=== PATIENT | female | born 1975 | race Caucasian/White ===

== ENCOUNTER → 2017-05-02 | Outpatient (CLI) | payer OTHER ==
[~2017-05-02] MED LIST: ACET325 PO; ALPR.5 PO; AMIT10; Atarax10 MG; CIME400 PO; CIPR500 PO; CLON.5 PO; CYAN500; CYCL10 PO; ESOM20 PO; FURO20 PO; GABA600; HYDACE10B PO; HYDACE5 PO; HYDACE5325 PO; HYDHCL25 PO; HYOS.125 SL; IBUP200 PO; IBUP800 PO; INDO25 PO; Imitrex25 MG; Keflex500 MG PO; LEVFLO500 PO; LORA.5; LORA.5 PO; METO10 PO; METTREX2.5 PO; NAPR500 PO; NAPR550 PO; NARCAN4 MG; OMEP20ER PO; ONDA4 PO; ONDA4ODT MM; OXYACE5T PO; OXYC15ER PO; OXYC30 PO; OXYC30ER PO; OXYC5 PO; PARO30 PO; PENVK500 PO; POLY17UD PO; POTCHL20ER PO; PRILOSEC PO; PROM25 PO; Paxil20 MG; Prilosec Otc20 MG; RXHYDACE PO; RXONDA4ODT MM; RXOXYACE PO; RXPROM25 PO; SUBOXONE 8 MG-1 EACH; SUCR1 PO; SULTRIDS PO; THIA100I IV; Zofran Odt4 MG PO
== END ==
LOC: LAB SRC 16:19
DX: R82.90 Unspecified abnormal findings in urine (principal)
CPT/HCPCS: 87077; 87086; 87186

== ENCOUNTER 2017-05-19 09:32 | Emergency (ER) | payer OTHER ==
[~2017-05-19] VITALS: Ht 170.2 cm; Wt 70.8 kg
[~2017-05-19 09:32] MED LIST changes: -CIME400 PO; -CYAN500; -HYDHCL25 PO; -LORA.5; -NARCAN4 MG; -Prilosec Otc20 MG; -THIA100I IV; -Zofran Odt4 MG PO
[2017-05-19 10:54] LABS: Source, Urine Clean Catch
[2017-05-19 11:07] LABS: Appearance, Urine Cloudy (Clear); Bacteria Many /hpf; Bilirubin, Urine 2+ (Neg); Blood, Urine 5+ (Neg); Color, Urine Amber (P-Yellow); Glucose Qualitative, Urine Neg (Neg); Ketones, Urine 1+ (Neg); Leukocyte Esterase, Urine 2+ (Neg); Nitrite, Urine Neg (Neg); Protein, Urine 3+ (Neg); Red Blood Cells, Urine 0-2 /hpf (0-2); Specific Gravity, Urine 1.015 (1.003-1.022); Squamous Epithelial Cells Mod /hpf (Few); Urobilinogen, Urine 3+ (Normal)
[2017-05-19 11:24] LABS: BASOPHILS ABSOLUTE AUTO 0.04 K/mm3 (0.00-0.23); BASOPHILS PERCENT AUTO 1 % (0-2); EOSINOPHILS ABSOLUTE AUTO 0.02 K/mm3 (0.00-0.68); EOSINOPHILS PERCENT AUTO 0 % (0-6); Hematocrit 44.5 % (33.0-51.0); Hemoglobin 14.7 g/dL (11.5-16.0); IMMATURE GRAN ABSOLUTE AUTO 0.06 K/mm3 (0.00-0.10); IMMATURE GRAN PERCENT AUTO 1 % (0-1); LYMPHOCYTES ABSOLUTE AUTO 1.07 K/mm3 (0.84-5.20); LYMPHOCYTES PERCENT AUTO 17 % (21-46); MONOCYTES ABSOLUTE AUTO 0.49 K/mm3 (0.16-1.47); MONOCYTES PERCENT AUTO 8 % (4-13); Mean Corpuscular HGB 32.4 pg (26.0-34.0); Mean Corpuscular Volume 98 fL (80-100); Mean Platelet Volume 8.4 fL (9.1-12.4); NEUTROPHILS ABSOLUTE AUTO 4.65 K/mm3 (1.96-9.15); NEUTROPHILS PERCENT AUTO 74 % (41-73); Platelet Count 338 K/mm3 (150-400); RDW Coefficient Variation 12.8 % (11.7-14.2); Red Blood Cell Count 4.54 M/mm3 (3.80-5.20); White Blood Cell Count 6.33 K/mm3 (4.00-11.30)
[2017-05-19 11:45] LABS: Alanine Aminotransfer (ALT/SGP 63 U/L (12-78); Albumin, Blood 2.8 g/dL (3.4-5.0); Albumin/Globulin Ratio 0.6 (0.8-1.8); Alk Phos 249 U/L (50-136); Anion Gap 10 mmol/L (6-16); Aspartate Aminotrans (AST/SGOT 126 U/L (12-37); Bilirubin, Total 1.2 mg/dL (0.1-1.0); Blood Urea Nitrogen 6 mg/dL (8-24); Bun/Creatinine Ratio 6.3 (12.0-20.0); CO2, Blood 27 mmol/L (21-32); Calcium, Blood 8.7 mg/dL (8.5-10.1); Chloride, Blood 103 mmol/L (98-108); Creatinine, Blood 0.95 mg/dL (0.40-1.00); Globulin, Blood 4.5 g/dL (2.2-4.0); Glomerular Filtration Rate >60 (60-); Glucose, Blood 83 mg/dL (70-99); Potassium, Blood 3.8 mmol/L (3.5-5.5); Sodium, Blood 140 mmol/L (136-145); Total Protein, Blood 7.3 g/dL (6.4-8.2)
[2017-05-19] MEDS ORDERED: Zofran Odt4 MG PO (13:33)
[2017-05-19] MEDS ORDERED: CIME400 PO (13:33)
[2017-09-20] MEDS ORDERED: ONDA4ODT MM (00:42)
[2017-12-03] MEDS ORDERED: LORA.5 (08:29)
[2017-12-03] MEDS ORDERED: CYAN500 (08:30)
[2017-12-03] MEDS ORDERED: Prilosec Otc20 MG (08:30)
[2017-12-03] MEDS ORDERED: THIA100I IV (08:30)
[2017-12-03] MEDS ORDERED: NARCAN4 MG (08:30)
== END 2017-05-19 14:03 | disposition home or self-care (01) ==
LOC: ER 09:32
PROVIDERS: Physician Assistant
DX: K59.00 Constipation, unspecified (principal); R10.12 Left upper quadrant pain; Z88.8 Allergy status to other drugs, medicaments and biological substances; Z88.1 Allergy status to other antibiotic agents; Z88.5 Allergy status to narcotic agent; Z79.899 Other long term (current) drug therapy
CPT/HCPCS: 36415; 74177; 80053; 81001; 81025; 83690; 85025; 87077; 87086; 87186; 96361; 96374; 96375; 96376; 99284; J2270; J2405; J7030; Q9967

== ENCOUNTER 2017-07-11 12:32 | Emergency (ER) | payer OTHER ==
[~2017-07-11] VITALS: Ht 170.2 cm; Wt 79.4 kg
[~2017-07-11 12:32] MED LIST changes: +CIME400 PO; +Zofran Odt4 MG PO
[2017-07-11] MEDS ORDERED: Keflex500 MG PO (15:53)
[2017-07-11] MEDS ORDERED: HYDHCL25 PO (16:05)
== END 2017-07-11 16:09 | disposition home or self-care (01) ==
LOC: ER 12:32
DX: L03.116 Cellulitis of left lower limb (principal); L03.115 Cellulitis of right lower limb; Z88.8 Allergy status to other drugs, medicaments and biological substances; Z88.1 Allergy status to other antibiotic agents; Z88.5 Allergy status to narcotic agent; Z79.899 Other long term (current) drug therapy
CPT/HCPCS: 99283

== ENCOUNTER → 2017-09-09 | Outpatient (CLI) | payer OTHER ==
[~2017-09-09] MED LIST changes: +HYDHCL25 PO
== END ==
LOC: LAB 18:04 → LAB SHORT 18:04
DX: Z51.81 Encounter for therapeutic drug level monitoring (principal); Z79.899 Other long term (current) drug therapy; Z87.898 Personal history of other specified conditions

== ENCOUNTER → 2017-09-23 | Outpatient (CLI) | payer OTHER | LOC: LAB 16:43 → LAB SHORT 16:43 | DX: Z51.81 Encounter for therapeutic drug level monitoring (principal); Z79.899 Other long term (current) drug therapy ==

== ENCOUNTER → 2017-09-27 | Outpatient (CLI) | payer OTHER | LOC: LAB SHORT 15:25 → LAB 15:25 | DX: F11.21 Opioid dependence, in remission (principal); Z87.898 Personal history of other specified conditions | CPT/HCPCS: G0480 ==

== ENCOUNTER → 2017-09-30 | Outpatient (CLI) | payer OTHER | LOC: LAB SHORT 10:38 → LAB 10:38 | DX: Z51.81 Encounter for therapeutic drug level monitoring (principal); Z79.899 Other long term (current) drug therapy | CPT/HCPCS: G0480 ==

== ENCOUNTER → 2017-10-07 | Outpatient (CLI) | payer OTHER ==
[2017-10-29 15:06] LABS: 17HYDROXYCORTICOSTER. MG/G CRT <5.4 mg/gCR (2.0-6.5); CREATININE, URINE - PER VOLUME 37 mg/dL (.)
== END ==
LOC: LAB SRC 12:05 → LAB SHORT 12:05
PROVIDERS: Family Medicine
DX: R63.0 Anorexia (principal); R63.4 Abnormal weight loss
CPT/HCPCS: 83491

== ENCOUNTER → 2017-10-14 | Outpatient (CLI) | payer OTHER | LOC: LAB SHORT 11:28 → LAB 11:28 | DX: F44.89 Other dissociative and conversion disorders (principal); F11.20 Opioid dependence, uncomplicated; Z91.81 History of falling ==

== ENCOUNTER → 2017-12-25 | Outpatient (CLI) | payer OTHER ==
[~2017-12-25] MED LIST changes: +CYAN500; +LORA.5; +NARCAN4 MG; +Prilosec Otc20 MG; +THIA100I IV
== END ==
LOC: LAB SHORT 15:28 → LAB SRC 15:28
DX: F11.93 Opioid use, unspecified with withdrawal (principal); R55 Syncope and collapse

== ENCOUNTER → 2019-12-21 | Outpatient (CLI) | payer OTHER | LOC: LAB EV 10:26 → LAB SHORT 10:26 | DX: M25.469 Effusion, unspecified knee (principal) | CPT/HCPCS: 84550 ==